=== PATIENT | female | born 1950 | race Caucasian/White ===

== ENCOUNTER → 2016-07-02 | Outpatient (CLI) | payer OTHER ==
[~2016-07-02] MED LIST: ALBU1AER9 INH; ASPCH81; CALCTAB5 PO; CHOL100010 PO; FLNIN NAE; IBUP600T44 PO; OMEG10007 PO; TEARS NATURALE OPR
--- NOTE | 2016-07-02 13:34 | MAMMOGRAPHY REPORT ---
BILATERAL DIGITAL SCREENING MAMMOGRAM WITH CAD: 07/02/2016 TECHNIQUE: Current study was also evaluated with a Computer Aided Detection (CAD) system. Bilatera l CC and MLO views were obtained. COMPARISON: Comparison is made to exams dated: 06/29/2015 mammogram - [facility], 06/29/2014 mammogram - [facility], 06/17/2013 mammogram, 06/16/2012 mammogram - [facility] 04/11/2011 mammogram, and 01/31/2010 mammogram - [facility]. BREAST COMPOSITION: There are scattered areas of fibroglandular density in both breasts. FINDINGS: No suspicious masses, calcifications, or areas of architectural distortion are noted in e ither breast. There has been no significant interval change compared to prior exams. IMPRESSION: ACR BI-RADS CATEGORY 1: NEGATIVE There is no mammographic evidence of malignancy. A 1 year screening mammogram is recommended. The p atient will receive written notification of the results. Approximately 10% of breast cancers are not detected with mammography. A negative mammographic repor t should not delay biopsy if a clinically suggestive mass is present. Teri Cleary M.D. ah/:07/02/2016 11:53:54 Setter Out: Aurea SAMPSON(R)(M), [facility] letter sent: Normal 1/2 BI-RADS Code: ACR BI-RADS Category 1: Negative
== END | disposition home or self-care (01) ==
LOC: C.MAMM 10:10
PROVIDERS: ATTEND Surgery
DX: Z12.31 Encounter for screening mammogram for malignant neoplasm of breast (principal)

== ENCOUNTER → 2017-06-26 | Outpatient (CLI) | payer OTHER ==
--- NOTE | 2017-06-26 11:18 | DIAGNOSTIC IMAGING REPORT ---
ANKLE BRACHIAL INDEX COMPLETE HISTORY: 67-year-old male presents with arterial disease of the bilateral lower extremities bilaterial EDGAR'S TECHNIQUE: Ankle-brachial indices. FINDINGS: BRACHIAL: Right: 136 mmHg. Left: 137 mmHg. ANKLE (POSTERIOR TIBIAL): Right: 149 mmHg. (1.09) Left: 157 mmHg. (1.15) ANKLE (DORSALIS PEDIS): Right: 142 mmHg. (1.04) Left: 150 mmHg. (1.09) IMPRESSION: Normal EDGAR's bilaterally. The above report was generated using voice recognition software. It may contain grammatical, syntax or spelling errors. Electronically signed by: Nick Myles M.D. 06/26/2017 11:16 AM Dictated Date/Time: 06/26/2017 11:14 AM
== END | disposition home or self-care (01) ==
LOC: C.ULTR 10:23
PROVIDERS: ATTEND Podiatrist Foot & Ankle Surgery
DX: I70.293 Other atherosclerosis of native arteries of extremities, bilateral legs (principal)

== ENCOUNTER → 2017-09-10 | Outpatient (CLI) | payer OTHER ==
--- NOTE | 2017-09-11 14:20 | MAMMOGRAPHY REPORT ---
BILATERAL DIGITAL SCREENING MAMMOGRAM TOMOSYNTHESIS WITH CAD: 09/10/2017 CLINICAL HISTORY: Routine screening. Patient has no complaints. TECHNIQUE: Breast tomosynthesis in addition to standard 2D mammography was performed. Current study was also evaluated with a Computer Aided Detection (CAD) system. COMPARISON: Comparison is made to exams dated: 07/02/2016 mammogram, 06/29/2015 mammogram - [facility], 01/02/2015 mammogram, 06/29/2014 mammogram - [facility], 06/17/2013 mammog johnna, and 06/16/2012 mammogram - [facility] BREAST COMPOSITION: There are scattered areas of fibroglandular density in both breasts. FINDINGS: No suspicious masses, calcifications, or areas of architectural distortion are noted in ei ther breast. There has been no significant interval change compared to prior exams. A linear scar ma rker denotes a scar on the left lower inner breast. IMPRESSION: ACR BI-RADS CATEGORY 2: BENIGN There is no mammographic evidence of malignancy. A 1 year screening mammogram is recommended. The pa tient will receive written notification of the results. Approximately 10% of breast cancers are not detected with mammography. A negative mammographic report should not delay biopsy if a clinically suggestive mass is present. Teri Cleary M.D. /:09/10/2017 14:29:54 Release Manager: Aurea Hardy, [facility] letter sent: Normal 1/2 BI-RADS Code: ACR BI-RADS Category 2: Benign
== END | disposition home or self-care (01) ==
LOC: C.MAMM 13:52
PROVIDERS: ATTEND Surgery
DX: Z12.31 Encounter for screening mammogram for malignant neoplasm of breast (principal)

== ENCOUNTER 2020-07-06 03:34 | Inpatient (IN) ==
--- NOTE | 2020-07-06 04:03 | Emergency Department Note ---
Impression & Plan Acute alteration in mental status, Fall ED Provider Note NAME: JAZZY DOHERTY AGE: 70 SEX: F ARRIVES VIA: Ambulance INFORMANT: Patient and EMS ED PROVIDER(S): Melissa Johnson DO CHIEF COMPLAINT: Fall PLAN: Disposition: Admitted to the [facility] service Condition: Fair MEDICAL DECISION MAKING: This is a 70-year-old female patient who was found on the floor of her assisted living facility and was believed to be there for the past 3 to 4 hours. The patient is somewhat confused but states that she fell there and was calling out for help. She describes increased falls over the past couple of weeks. She has a history of Parkinson's disease. She has no specific complaints of pain. The patient continues to have intermittent times of confusion. Patient appears slightly dehydrated. Essentially, the patient was found outside of her apartment in a common area laying on the floor for some period of time. She did not have her walker with her and she is intermittently confused. She has evidence of a contusion to her hand and some abrasions to her elbow but no other significant signs of trauma. She has no significant complaints of pain except for soreness to her thighs. I discussed the case with Dr. Houston and he will evaluate for further management. Triage Nursing notes reviewed and agree them. Additional history obtained from EMS Vital Signs: reviewed and unremarkable Differential diagnosis: Intracranial abnormality, electrolyte abnormality, hypoglycemia, rhabdomyolysis, UTI ER treatment provided: IV normal saline Diagnostics interpreted by me: ECG: Normal sinus rhythm at [address] segment elevation or signs of ischemia. There is no ectopy. There is a normal QTC. There are no previous EKGs to compare to. Cardiac Monitoring: Normal sinus rhythm at a rate of 83 Laboratory studies: See below Imaging studies: As per stat rad CT head: No acute or focal intracranial abnormalities. HPI: 70/F arrives for evaluation of fall. The patient was found on the floor at her assisted living facility by EMS as they were responding to another call in the building. The patient was somewhat confused. It seems that she was laying on the floor there undetected for the past 4 hours. The patient has no complaints of pain but does state that her knees give out and she does drop to the floor frequently and cannot get up. The patient has not been to this hospital before. ROS: See above HPI for pertinent positives & negatives. A total of 10 systems reviewed and were otherwise negative. PAST MEDICAL HISTORY:Parkinson's disease PAST SURGICAL HISTORY:See Below FAMILY HISTORY:See Below SOCIAL HISTORY:Lives in an assisted living-[address] [place] [address] MEDICATIONS:See list ALLERGIES:See list VITALS:See Below PHYSICAL EXAMINATION: HEENT: Head - normocephalic and atraumatic. Pupils are equal, round, and reactive to light. Extraocular eye muscles are intact and sclera are anicteric. Ears - bilaterally patent canals with noninjected tympanic membranes and no evidence of hemotympanum. Nose - moist nasal mucosa without discharge. Mouth - moist buccal mucosa. Oropharynx is nonerythematous and there is no tonsillar exudate or edema noted. Neck: Supple; no pain to palpation over the posterior cervical spine and she has full range of motion in the neck. Heart: Regular rate and rhythm. There is a normal S1 and S2 with no murmurs, clicks, or gallops appreciated. Lungs: Clear to auscultation bilaterally with no wheezes, rales, or rhonchi. Abdomen: Soft, completely nontender, nondistended, with good bowel sounds. There are no palpable pulsatile masses or hepatosplenomegaly. There is no guarding, rigidity, or rebound noted. Extremities: There is a contusion over the dorsal aspect of the left hand and some areas of abrasion over both elbows. Neuro:The patient is awake and alert, oriented place. The patient is intermittently confused at times. Muscle strength is 5/5 in all 4 extremities. 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 There are no cerebellar signs. ED COURSE: Times/Reassessments: 0340: The patient was evaluated in room A10. An order was placed for continuous cardiac monitoring. Patient is in a normal sinus rhythm at a rate of 83. Twelve-lead EKG was obtained. This is described above. The patient went for CT scan of the brain as described above. Patient was bolused with 500 cc of saline. She was catheterized for urine specimen. Patient is resting comfortably at this time. I discussed the case with Dr. Houston and he will evaluate for further management. Melissa Johnson DO Past Med/Surg History Social History Smoking Status: Never smoker Allergies Allergies Allergy/AdvReac Type Severity Reaction Status Date / Time Quinolones Allergy Intermediate SWELLING, Verified 07/06/20 03:53 HIVES Sulfa (Sulfonamide Allergy Intermediate SWELLING, Verified 07/06/20 03:53 Antibiotics) HIVES Cipro Allergy Unknown UNKNOWN Verified 06/22/14 07:31 ciprofloxacin [Cipro] Allergy Unknown UNKNOWN Verified 07/06/20 03:53 Home Meds Home Medications Medication Instructions Recorded Confirmed aspirin 81 mg PO DAILY 07/06/20 07/06/20 calcium carbonate-vitamin D3 1 tab PO TIDM 07/06/20 07/06/20 [Calcium 500 + D (D3)] carbidopa-levodopa 0.5 tab PO TID 07/06/20 07/06/20 cholecalciferol (vitamin D3) 25 mcg PO DAILY 07/06/20 07/06/20 [Vitamin D3] dextran 70-hypromellose [GenTeal 1 drp OPHTHALMIC (EYE) TID 07/06/20 07/06/20 Tears Mild] fluticasone propionate [Flonase] 2 spray INTRANASAL DAILY 07/06/20 07/06/20 ibuprofen 600 mg PO TID PRN 07/06/20 07/06/20 cmhmsdtf-rev-XF-lycopen-lutein 1 tab PO DAILY 07/06/20 07/06/20 [Centrum Silver] polyethylene glycol 3350 [Miralax] 17 g PO DAILY 07/06/20 07/06/20 simethicone [Gas-X Ultra-Strength] 180 mg PO DIRECTED PRN 07/06/20 07/06/20 Results & Data (ED) Vital Signs Vital Signs - 24 hr 07/06/20 03:35 07/06/20 03:57 07/06/20 05:35 Temperature 37 C Temperature Source Oral Pulse Rate - Lying Pulse Rate - Sitting Pulse Rate 83 Pulse Rate [Apical] 84 Respiratory Rate 18 18 Respiratory Effort / Characteristics Non-Labored Non-Labored Respiratory Depth Normal Normal Respiratory Pattern Regular Regular Blood Pressure - Lying Blood Pressure - Sitting Blood Pressure 128/46 L Blood Pressure [Right Arm] 117/44 L Blood Pressure Mean 73 Blood Pressure Mean [Right Arm] 68 Blood Pressure Position Lying Pulse Oximetry 99 97 99 Oxygen Delivery Method Room Air Room Air Room Air Sepsis Recent Fever Within 48 Hours No Sepsis New/Unexplained Change in Mental Status No Sepsis Action Taken by Nursing No Action Required 07/06/20 05:46 Temperature Temperature Source Pulse Rate - Lying 85 Pulse Rate - Sitting 92 H Pulse Rate Pulse Rate [Apical] Respiratory Rate Respiratory Effort / Characteristics Respiratory Depth Respiratory Pattern Blood Pressure - Lying 105/52 L Blood Pressure - Sitting 134/57 L Blood Pressure Blood Pressure [Right Arm] Blood Pressure Mean Blood Pressure Mean [Right Arm] Blood Pressure Position Pulse Oximetry Oxygen Delivery Method Sepsis Recent Fever Within 48 Hours Sepsis New/Unexplained Change in Mental Status Sepsis Action Taken by Nursing Laboratory Data Result diagrams: 07/06/20 04:22 07/06/20 04:22 Lab Results 07/06/20 07/06/20 07/06/20 Range/Units 04:22 04:22 04:55 WBC 8.12 (4.8-10.8) K/uL RBC 4.56 (4.2-5.4) M/uL Hgb 13.9 (12.0-16.0) g/dL Hct 41.1 (37-47) % MCV 90.1 (80-100) fL MCH 30.5 (25-34) pg MCHC 33.8 (32-36) g/dL RDW Std Deviation 42.7 (36.4-46.3) fL RDW Coeff of Vipul 13.1 (11.5-14.5) % Plt Count 193 (130-400) K/uL MPV 9.7 (7.4-10.4) fL Immature Gran % (Auto) 0.2 % Neut % (Auto) 81.8 % Lymph % (Auto) 8.6 % [place] % (Auto) 8.6 % Eos % (Auto) 0.4 % Baso % (Auto) 0.4 % Neut # (Auto) 6.64 H (1.4-6.5) K/uL Lymph # (Auto) 0.70 L (1.2-3.4) K/uL [place] # (Auto) 0.70 H (0.11-0.59) K/uL Eos # (Auto) 0.03 (0-0.5) K/uL Baso # (Auto) 0.03 (0-0.2) K/uL Immature Gran # (Auto) 0.02 (0.00-0.02) K/uL Sodium 140 (136-145) mmol/L Potassium 3.7 (3.5-5.1) mmol/L Chloride 107 (98-107) mmol/L Carbon Dioxide 29 (21-32) mmol/L Anion Gap 4.0 (3-11) BUN 19 H (7-18) mg/dl Creatinine 0.84 (0.6-1.2) mg/dl Est Cr Clr Drug Dosing 46.4 ml/min Est GFR ( Amer) 81.0 Est GFR (Non-Af Amer) 69.9 BUN/Creatinine Ratio 22.4 H (10-20) Glucose 98 (70-99) mg/dl Calcium 9.7 (8.5-10.1) mg/dl Magnesium 2.1 (1.8-2.4) mg/dl Total Bilirubin 0.5 (0.2-1) mg/dl AST 22 (15-37) U/L ALT 29 (12-78) U/L Alkaline Phosphatase 76 (45-117) U/L Total Creatine Kinase 148 (26-192) U/L Troponin I < 0.015 (0-0.045) ng/ml Total Protein 7.0 (6.4-8.2) gm/dl Albumin 3.8 (3.4-5.0) gm/dl Globulin 3.2 (2.5-4.0) gm/dl Albumin/Globulin Ratio 1.2 (0.9-2) TSH 1.180 (0.300-4.500) uIu/ml Urine Color Dark Yellow Urine Appearance Clear (Clear) Urine pH 5.0 (4.5-7.5) Ur Specific [place] 1.021 (1.000-1.030) Urine Protein Negative (Negative) Urine Glucose (UA) Negative (Negative) Urine Ketones 1+ H (Negative) Urine Blood Trace H (Negative) Urine Nitrite Negative (Negative) Urine Bilirubin Negative (Negative) Urine Urobilinogen Negative (Negative) Ur Leukocyte Esterase Negative (Negative) Urine WBC (Auto) 1-5 (0-5) /hpf Urine RBC (Auto) 5-10 H (0-4) /hpf U Hyaline Cast (Auto) 10-30 H (0-5) /lpf U Epithel Cells (Auto) 20-30 H (0-5) /lpf Urine Bacteria (Auto) Negative (Negative) COVID-19 Eval Order 07/06/20 Range/Units 06:30 WBC (4.8-10.8) K/uL RBC (4.2-5.4) M/uL Hgb (12.0-16.0) g/dL Hct (37-47) % MCV (80-100) fL MCH (25-34) pg MCHC (32-36) g/dL RDW Std Deviation (36.4-46.3) fL RDW Coeff of Vipul (11.5-14.5) % Plt Count (130-400) K/uL MPV (7.4-10.4) fL Immature Gran % (Auto) % Neut % (Auto) % Lymph % (Auto) % [place] % (Auto) % Eos % (Auto) % Baso % (Auto) % Neut # (Auto) (1.4-6.5) K/uL Lymph # (Auto) (1.2-3.4) K/uL [place] # (Auto) (0.11-0.59) K/uL Eos # (Auto) (0-0.5) K/uL Baso # (Auto) (0-0.2) K/uL Immature Gran # (Auto) (0.00-0.02) K/uL Sodium (136-145) mmol/L Potassium (3.5-5.1) mmol/L Chloride (98-107) mmol/L Carbon Dioxide (21-32) mmol/L Anion Gap (3-11) BUN (7-18) mg/dl Creatinine (0.6-1.2) mg/dl Est Cr Clr Drug Dosing ml/min Est GFR ( Amer) Est GFR (Non-Af Amer) BUN/Creatinine Ratio (10-20) Glucose (70-99) mg/dl Calcium (8.5-10.1) mg/dl Magnesium (1.8-2.4) mg/dl Total Bilirubin (0.2-1) mg/dl AST (15-37) U/L ALT (12-78) U/L Alkaline Phosphatase (45-117) U/L Total Creatine Kinase (26-192) U/L Troponin I (0-0.045) ng/ml Total Protein (6.4-8.2) gm/dl Albumin (3.4-5.0) gm/dl Globulin (2.5-4.0) gm/dl Albumin/Globulin Ratio (0.9-2) TSH (0.300-4.500) uIu/ml Urine Color Urine Appearance (Clear) Urine pH (4.5-7.5) Ur Specific [place] (1.000-1.030) Urine Protein (Negative) Urine Glucose (UA) (Negative) Urine Ketones (Negative) Urine Blood (Negative) Urine Nitrite (Negative) Urine Bilirubin (Negative) Urine Urobilinogen (Negative) Ur Leukocyte Esterase (Negative) Urine WBC (Auto) (0-5) /hpf Urine RBC (Auto) (0-4) /hpf U Hyaline Cast (Auto) (0-5) /lpf U Epithel Cells (Auto) (0-5) /lpf Urine Bacteria (Auto) (Negative) COVID-19 [facility] Administered Medications Discontinued Medications Sodium Chloride (Nss) 500 mls @ 999 mls/hr IV .Q31M ONE Stop: 07/06/20 06:01 Last Infusion: 07/06/20 06:38 Dose: 0 mls/hr Documented by: [id number] Admin: 07/06/20 06:05 Dose: 999 mls/hr Documented by: [id number] Discharge Plan Visit Data Chief Complaint: Confusion Stated Complaint: ALTERED MENTAL STATUS ED Provider: Melissa Johnson Discharge Problem: Acute alteration in mental status, Fall Forms Stand Alone Forms: My [facility] Prescriptions Prescriptions: No Action simethicone [Gas-X Ultra-Strength] 180 mg Capsule 180 mg PO DIRECTED PRN (Reason: FLATUS/BLOATING) RF: 0 aspirin 81 mg Tablet,Delayed Release (Dr/Ec) 81 mg PO DAILY RF: 0 ibuprofen 600 mg Tablet 600 mg PO TID PRN (Reason: Pain) RF: 0 polyethylene glycol 3350 [Miralax] 17 gram/dose Powder 17 g PO DAILY RF: 0 carbidopa-levodopa 25-100 mg Tablet 0.5 tab PO TID RF: 0 fluticasone propionate [Flonase] 50 mcg/actuation [place],Suspension 2 spray INTRANASAL DAILY RF: 0 cholecalciferol (vitamin D3) [Vitamin D3] 25 mcg (1,000 unit) Capsule 25 mcg PO DAILY RF: 0 Centrum Silver 0.4-300-250 mg-mcg-mcg Tablet 1 tab PO DAILY RF: 0 calcium carbonate-vitamin D3 [Calcium 500 + D (D3)] 500 mg(1,250mg) -125 unit Tablet 1 tab PO TIDM RF: 0 GenTeal Tears Mild 0.1-0.3 % Drops 1 drp OPHTHALMIC (EYE) TID RF: 0 Discharge Problem: Fall Qualifiers: Encounter type: initial encounter Qualified Code(s): W19.XXXA - Unspecified fall, initial encounter
[2020-07-06 04:29] LABS: Basophils # (auto) 0.03 K/uL (0-0.2); Basophils % (auto) 0.4 %; Eosinophils # (auto) 0.03 K/uL (0-0.5); Eosinophils % (auto) 0.4 %; Hematocrit (blood only) 41.1 % (37-47); Hemoglobin 13.9 g/dL (12.0-16.0); Immature Granulocytes # (auto) 0.02 K/uL (0.00-0.02); Immature Granulocytes % (auto) 0.2 %; Lymphocytes % (auto) 8.6 %; Mean Corpuscular Hemoglobin 30.5 pg (25-34); Mean Corpuscular Hgb Conc 33.8 g/dL (32-36); Mean Corpuscular Volume 90.1 fL (80-100); Mean Platelet Volume 9.7 fL (7.4-10.4); Monocytes % (auto) 8.6 %; Neutrophils # (auto) 6.64 K/uL (1.4-6.5); Neutrophils % (auto) 81.8 %; Platelet Count 193 K/uL (130-400); RDW Coefficient of Variation 13.1 % (11.5-14.5); RDW Standard Deviation 42.7 fL (36.4-46.3); Red Blood Count 4.56 M/uL (4.2-5.4); White Blood Count 8.12 K/uL (4.8-10.8)
[2020-07-06 04:47] LABS: Alanine Aminotransferase 29 U/L (12-78); Albumin Level 3.8 gm/dl (3.4-5.0); Aspartate Aminotransferase 22 U/L (15-37); BUN Creatinine Ratio 22.4 (10-20); Blood Urea Nitrogen 19 mg/dl (7-18); Calcium 9.7 mg/dl (8.5-10.1); Carbon Dioxide 29 mmol/L (21-32); Chloride 107 mmol/L (98-107); Creatinine Clr Calc Pharmacy 46.4 ml/min; Est GFR (Non-African American) 69.9; Glucose 98 mg/dl (70-99); Potassium 3.7 mmol/L (3.5-5.1); Sodium 140 mmol/L (136-145)
[2020-07-06 04:58] LABS: Albumin Globulin Ratio 1.2 (0.9-2); Alkaline Phosphatase 76 U/L (45-117); Bilirubin,Total 0.5 mg/dl (0.2-1); Globulin 3.2 gm/dl (2.5-4.0); Troponin I < 0.015 ng/ml (0-0.045)
[2020-07-06 05:24] LABS: Appearance Urine Clear (Clear); Bacteria Urine Automated Negative (Negative); Bilirubin Urine Negative (Negative); Blood Urine Trace (Negative); Color Urine Dark Yellow; Epithelial Cell Urine Auto 20-30 /lpf (0-5); Glucose Urine UA Negative (Negative); Ketones Urine 1+ (Negative); Leukocyte Esterase Urine Negative (Negative); Nitrite Urine Negative (Negative); Protein Urine Negative (Negative); Specific Gravity Urine 1.021 (1.000-1.030); Urobilinogen Urine Negative (Negative)
[2020-07-06] MEDS ORDERED: SODIUM CHLORIDE 0.9% 500 ML IV ONE (05:31)
--- NOTE | 2020-07-06 06:30 | History & Physical Report ---
Date of Service July 06, 2020 Assessment & Plan (1) Acute alteration in mental status: Transient Possible clinical dehydration supported by ketonuria mentation much clearer on my evaluation although slow to respond to some questions from time to time after initial IV hydration at the ER. Recurrent falls, history of Parkinson's disease Rule out orthostasis Cervical pain post fall OBS Medical telemetry IVF Check orthostatic vitals CT cervical spine PT OT eval DVT prophylaxis. SCDs Re: Left hand dorsum ecchymosis Full code Patient requesting for her son to be updated updated of plan of care. Mr. Glenn Bowers, [phone]. Text document was generated using [employer] voice recognition software. It may contain grammatical or spelling errors. Kindly contact undersigned for clarification of any documentation item in question. History of Present Illness Chief Complaint: Fall Primary Care Provider: Stanley Gaines DO History obtained from patient and records. Medical history significant for Parkinson's disease, chronic back pain. Patient has had recurrent falls since the year started. No syncope, dizziness, chest pain, S OB prior to falls. Just the sensation of falling down. Rehab recommended by PCP as per patient but she did not think she needed it. Last night, patient went out of her assisted living unit to the [facility] area to get pretzels when she had another fall without other symptoms. Third fall this year as per patient. No head trauma or LOC. Patient had trouble getting up. Note of some bruising on the left hand without unusual pain. Note of achy neck pain without unusual weakness/numbness of the arms and legs. EMS was at assisted living unit to assess another resident's call when they found patient. Patient noted to be initially confused and somewhat slow to respond as per report. Patient brought by EMS to the hospital. 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 Allergies Allergy/AdvReac Type Severity Reaction Status Date / Time Quinolones Allergy Intermediate SWELLING, Verified 07/06/20 03:53 HIVES Sulfa (Sulfonamide Allergy Intermediate SWELLING, Verified 07/06/20 03:53 Antibiotics) HIVES Cipro Allergy Unknown UNKNOWN Verified 06/22/14 07:31 ciprofloxacin [Cipro] Allergy Unknown UNKNOWN Verified 07/06/20 03:53 Home Medications Medication Instructions Recorded Confirmed Type aspirin 81 mg PO DAILY 07/06/20 07/06/20 History calcium carbonate-vitamin D3 1 tab PO TIDM 07/06/20 07/06/20 History [Calcium 500 + D (D3)] carbidopa-levodopa 0.5 tab PO TID 07/06/20 07/06/20 History cholecalciferol (vitamin D3) 25 mcg PO DAILY 07/06/20 07/06/20 History [Vitamin D3] dextran 70-hypromellose [GenTeal 1 drp OPHTHALMIC (EYE) TID 07/06/20 07/06/20 History Tears Mild] fluticasone propionate [Flonase] 2 spray INTRANASAL DAILY 07/06/20 07/06/20 History ibuprofen 600 mg PO TID PRN 07/06/20 07/06/20 History zblminhd-waj-GY-lycopen-lutein 1 tab PO DAILY 07/06/20 07/06/20 History [Centrum Silver] polyethylene glycol 3350 [Miralax] 17 g PO DAILY 07/06/20 07/06/20 History simethicone [Gas-X Ultra-Strength] 180 mg PO DIRECTED PRN 07/06/20 07/06/20 History Past Med/Surg History Social History Smoking Status: Never smoker Review of Systems Review of Systems: As per HPI, all 10 systems reviewed, all other ROS negative Physical Exam Physical Exam: GENERAL: Comfortable, pleasant, occasionally slow to respond to some questions, oriented, no respiratory distress SKIN: Normal color, warm HEENT: [place] palpebral conjunctivae, no ptosis, dry buccal mucosa NECK : Supple, no tenderness CHEST : CTA, no tenderness HEART : RRR, no obvious murmurs ABDOMEN: Some distention, nontender EXTREMITIES : No LE swelling/tenderness, ecchymosis left hand dorsum, no other conspicuous deformities noted NEUROLOGIC : Coherent, no facial asymmetry, rest tremors of the head and hands noted from time to time, gait and stance not assessed Results & Data Results & Data ([facility]) Vital Signs (Past 12 Hours) Vital Signs Temp Pulse Pulse Resp BP BP Pulse Ox 07/06/20 05:35 84 18 117/44 L 99 07/06/20 03:57 97 07/06/20 03:35 37 C 83 18 128/46 L 99 Laboratory Results Laboratory Results WBC 8.12 K/uL (4.8-10.8) 07/06/20 04:22 RBC 4.56 M/uL (4.2-5.4) 07/06/20 04:22 Hgb 13.9 g/dL (12.0-16.0) 07/06/20 04:22 Hct 41.1 % (37-47) 07/06/20 04:22 MCV 90.1 fL (80-100) 07/06/20 04:22 MCH 30.5 pg (25-34) 07/06/20 04:22 MCHC 33.8 g/dL (32-36) 07/06/20 04:22 RDW Std Deviation 42.7 fL (36.4-46.3) 07/06/20 04:22 RDW Coeff of Vipul 13.1 % (11.5-14.5) 07/06/20 04:22 Plt Count 193 K/uL (130-400) 07/06/20 04:22 MPV 9.7 fL (7.4-10.4) 07/06/20 04:22 Immature Gran % (Auto) 0.2 % 07/06/20 04:22 Neut % (Auto) 81.8 % 07/06/20 04:22 Lymph % (Auto) 8.6 % 07/06/20 04:22 [place] % (Auto) 8.6 % 07/06/20 04:22 Eos % (Auto) 0.4 % 07/06/20 04:22 Baso % (Auto) 0.4 % 07/06/20 04:22 Neut # (Auto) 6.64 K/uL (1.4-6.5) H 07/06/20 04:22 Lymph # (Auto) 0.70 K/uL (1.2-3.4) L 07/06/20 04:22 [place] # (Auto) 0.70 K/uL (0.11-0.59) H 07/06/20 04:22 Eos # (Auto) 0.03 K/uL (0-0.5) 07/06/20 04:22 Baso # (Auto) 0.03 K/uL (0-0.2) 07/06/20 04:22 Immature Gran # (Auto) 0.02 K/uL (0.00-0.02) 07/06/20 04:22 Sodium 140 mmol/L (136-145) 07/06/20 04:22 Potassium 3.7 mmol/L (3.5-5.1) 07/06/20 04:22 Chloride 107 mmol/L (98-107) 07/06/20 04:22 Carbon Dioxide 29 mmol/L (21-32) 07/06/20 04:22 Anion Gap 4.0 (3-11) 07/06/20 04:22 BUN 19 mg/dl (7-18) H 07/06/20 04:22 Creatinine 0.84 mg/dl (0.6-1.2) 07/06/20 04:22 Est Cr Clr Drug Dosing 46.4 ml/min 07/06/20 04:22 Est GFR ( Amer) 81.0 07/06/20 04:22 Est GFR (Non-Af Amer) 69.9 07/06/20 04:22 BUN/Creatinine Ratio 22.4 (10-20) H 07/06/20 04:22 Glucose 98 mg/dl (70-99) 07/06/20 04:22 Calcium 9.7 mg/dl (8.5-10.1) 07/06/20 04:22 Total Bilirubin 0.5 mg/dl (0.2-1) 07/06/20 04:22 AST 22 U/L (15-37) 07/06/20 04:22 ALT 29 U/L (12-78) 07/06/20 04:22 Alkaline Phosphatase 76 U/L (45-117) 07/06/20 04:22 Troponin I < 0.015 ng/ml (0-0.045) 07/06/20 04:22 Total Protein 7.0 gm/dl (6.4-8.2) 07/06/20 04:22 Albumin 3.8 gm/dl (3.4-5.0) 07/06/20 04:22 Globulin 3.2 gm/dl (2.5-4.0) 07/06/20 04:22 Albumin/Globulin Ratio 1.2 (0.9-2) 07/06/20 04:22 TSH 1.180 uIu/ml (0.300-4.500) 07/06/20 04:22 Urine Color Dark Yellow 07/06/20 04:55 Urine Appearance Clear (Clear) 07/06/20 04:55 Urine pH 5.0 (4.5-7.5) 07/06/20 04:55 Ur Specific [place] 1.021 (1.000-1.030) 07/06/20 04:55 Urine Protein Negative (Negative) 07/06/20 04:55 Urine Glucose (UA) Negative (Negative) 07/06/20 04:55 Urine Ketones 1+ (Negative) H 07/06/20 04:55 Urine Blood Trace (Negative) H 07/06/20 04:55 Urine Nitrite Negative (Negative) 07/06/20 04:55 Urine Bilirubin Negative (Negative) 07/06/20 04:55 Urine Urobilinogen Negative (Negative) 07/06/20 04:55 Ur Leukocyte Esterase Negative (Negative) 07/06/20 04:55 Urine WBC (Auto) 1-5 /hpf (0-5) 07/06/20 04:55 Urine RBC (Auto) 5-10 /hpf (0-4) H 07/06/20 04:55 U Hyaline Cast (Auto) 10-30 /lpf (0-5) H 07/06/20 04:55 U Epithel Cells (Auto) 20-30 /lpf (0-5) H 07/06/20 04:55 Urine Bacteria (Auto) Negative (Negative) 07/06/20 04:[address] head initial read: No acute intracranial findings Chest x-ray as per my interpretation atelectasis EKG as per my interpretation : Rate 80, NSR, normal axis, no ischemia
[2020-07-06 06:40] LABS: Creatine Kinase 148 U/L (26-192); Magnesium 2.1 mg/dl (1.8-2.4)
[2020-07-06] MEDS ORDERED: LACTATED RINGER'S 1,000 ML IV STA (06:41)
--- NOTE | 2020-07-06 06:51 | CT Scan Report ---
CT head/brain wo con CLINICAL HISTORY: Head pain status post trauma COMPARISON STUDY: MRI the brain dated 07/28/2006 TECHNIQUE: Axial CT of the brain is performed from the vertex to the skull base. IV contrast was not administered for this examination. A dose lowering technique was utilized adhering to the principles of ALARA. CT DOSE: 614.27 mGy.cm FINDINGS: No intra or extra-axial mass lesions are visualized. There is no CT evidence of acute cortical infarc tion. There is no evidence of midline shift. There is no acute hemorrhage. No calvarial fractures ar e visualized. There are patchy white matter hypodensities likely on a small vessel basis. There is no evidence of pathologic ventricular dilatation. There is no evidence of acute sinusitis IMPRESSION: No acute intracranial findings ACT 112: Negative or not required by law. Electronically signed by: Humberto Thompson M.D. 07/06/2020 6:49 AM
--- NOTE | 2020-07-06 06:53 | XRay Report ---
XR chest 1V portable CLINICAL HISTORY: weakness COMPARISON STUDY: No previous studies for comparison. FINDINGS: The cardiac and mediastinal contours are normal. There is no evidence of focal pulmonary co nsolidation. There is no evidence of failure. No pleural effusions are visualized.[ IMPRESSION: No active disease in the chest. ACT 112: Negative or not required by law. Electronically signed by: Humberto Thompson M.D. 07/06/2020 6:51 AM
[2020-07-06] MEDS ORDERED: KETOROLAC TROMETHAMINE 15 MG/ML VIAL IV STA (07:12)
--- NOTE | 2020-07-06 07:28 | CT Scan Report ---
CT OF THE CERVICAL SPINE CLINICAL HISTORY: Neck pain status post trauma COMPARISON STUDY: No previous studies for comparison. CT DOSE: 227.68 mGy.cm TECHNIQUE: CT scan of the cervical spine was performed from the skull base to the thoracic inlet. Radha ges are reviewed in the axial, sagittal, and coronal planes. IV contrast was not administered for thi s examination. A dose lowering technique was utilized adhering to the principles of ALARA. FINDINGS: There is no apical pneumothorax. There is a nonspecific 5 mm right apical pulmonary nodule The prevertebral soft tissues are normal. No fractures or subluxations are visualized. There are multilevel degenerative changes IMPRESSION: 1. No evidence of acute fracture or traumatic subluxation 2. Moderate multilevel degenerative change 3. 5 mm right apical pulmonary nodule. In a low-risk patient, no further follow-up is indicated. Please refer to below summary of Fleischner criteria recommendations for follow-up of incidental CT n odules (Rafaela Smith, Guidelines for management of small pulmonary nodules detected on CT scans: A sta tement from the Fleischner Society, Radiology 237: [phone].) SOLID NODULES Solitary nodule size: <6 mm * low risk patients: no follow-up needed * high risk patients: optional CT at 12 months Solitary nodule size: 6-8 mm * low risk patients: follow-up at 6-12 months, then consider further follow-up at 18-24 months * high risk patients: initial follow-up CT at 6-12 months and then at 18-24 months if no change Solitary nodule size: >8 mm * either low or high risk patients - consider follow-up CT at 3 months, and/or CT-PET, and/or biopsy Multiple nodules size: <6 mm * low risk patients: no routine follow-up * high risk patients: optional CT at 12 months Multiple nodules size: 6-8 mm * low risk patients: follow-up at 3-6 months, then consider further follow-up at 18-24 months * high risk patients: follow-up at 3-6 months, then at 18-24 months if no change Multiple nodules size: >8 mm * low risk patients: follow-up at 3-6 months, then consider further follow-up at 18-24 months * high risk patients: follow-up at 3-6 months, then at 18-24 months if no change Note: newly detected indeterminate nodule in persons 35 years of age or older. * low risk patients: minimal or absent history of smoking and/or other known risk factors * high risk patients: history of smoking or of other known risk factors (e.g. first degree relative with lung cancer, or exposure to asbestos, radon, uranium) * if a nodule up to 8 mm is partly solid or is ground glass further follow-up is required after 24 m onths to exclude possible slow growing adenocarcinoma (CAT) SUBSOLID NODULES Solitary pure ground-glass nodule * nodule size <6 mm - no CT follow-up required * nodule size >=6 mm - follow-up CT at 6-12 months, then every 2 years until 5 years Solitary part-solid nodule * nodule size <6 mm - no CT follow-up required * nodule size >=6 mm - follow-up CT at 3-6 months. If unchanged, and solid component remains <6 mm, then annual follow-up for 5 years Multiple subsolid nodules * nodule size <6 mm - follow-up CT at 3-6 months, consider further follow-up at 2 and 4 years if sta ble * nodule size >=6 mm - follow-up CT at 3-6 months, subsequent management based on the most suspiciou s nodule(s) ACT 112: Negative or not required by law. Electronically signed by: Humberto Thompson M.D. 07/06/2020 7:27 AM
[2020-07-06] MEDS ORDERED: IBUPROFEN 200 MG TAB PO PRN (08:40)
[2020-07-06] MEDS ORDERED: PROMETHAZINE HCL 6.25 MG in SODIUM CHLORIDE 0.9% 50 ML IV PRN (08:40)
[2020-07-06] MEDS ORDERED: ACETAMINOPHEN 325 MG TAB PO PRN (08:40)
[2020-07-06] MEDS: POLYETHYLENE (MIRALAX) 17 GM PACK PO SCH (10:01)
[2020-07-06] MEDS: FLUTICASONE PROPIONATE NA SPR 16 GM BTL NAE SCH (10:01)
[2020-07-06] MEDS: ASPIRIN 81 MG ECTAB PO SCH (10:01)
[2020-07-06] MEDS: MULTIVITAMIN TAB PO SCH (10:02)
[2020-07-06] MEDS: CARBIDOPA/LEVODOPA 25/100MG TAB PO SCH ×3 (10:02→20:17)
[2020-07-06] MEDS: CHOLECALCIFEROL 1,000 UNITS 25 MCG TAB PO SCH (10:03)
--- NOTE | 2020-07-06 14:06 | Electrocardiogram Report ---
Test Reason : Blood Pressure : / mmHG Vent. Rate : 079 BPM Atrial Rate : 079 BPM P-R Int : 130 ms QRS Dur : 080 ms QT Int : 362 ms P-R-T Axes : 069 054 036 degrees QTc Int : 415 ms Normal sinus rhythm Normal ECG No previous ECGs available Confirmed by Thaddeus Munoz ([id number]) on 07/06/2020 2:06:29 PM Referred By: REFERRED SELF Confirmed By:Krzysztof Munoz
--- NOTE | 2020-07-06 15:16 | Gastrointestinal Consultation ---
Date of Consultation July 06, 2020 Assessment & Plan (1) Dysphagia: Pt is a 70 y/o female admitted after recurrent falls, AMS (resolved). She is c/o intermittent dysphagia, w/o odynophagia, n/v, but has also reports of gradual weight loss in last 1/2 year. Hx of GERD, Schatzki ring s/p EGD w dilation in 2017 - Start Protonix 40mg daily - Soft, slippery diet - Plan for repeat outpt EGD w possible dilation once she is discharged - GI to sign off; pls recall prn Supervising Physician Co-Signing Physician Notes I saw and evaluated the patient. We were consulted with regard to difficulty with swallowing. The patient notes that this is been an ongoing problem for many years and seems to be stable. She did have a prior upper endoscopy performed by one of my partners which seemed to help her several years ago. She is presently admitted due to complications associated with her Parkinson's disease. Physical examination Elderly appearing female in no obvious distress Cogwheel rigidity noted Abdominal tenderness Patient with a history of intermittent solid food dysphagia likely result of her Schatzki's ring as noted on prior upper endoscopy. As she did have benefit from endoscopy with dilation in the past we can certainly make arrangements for this in the near future. This can certainly be done over the next few weeks as an outpatient. I would recommend that the patient be on a mechanical soft diet until the time of her next exam, we would also recommend use of a low-dose proton pump inhibitor. History of Present Illness Reason for Consultation: Dysphagia, hx of Schatzki ring s/p EGD w dilation Requesting Physician: Dr. Pietro Daley Attending Physician: Dr. Ruba Marinelli History of Present Illness Pt is a 70 y/o female admitted s/p fall at home who is seen today for c/o dysphagia. Hx of GERD, hiatal hernia and Schatzki ring s/p EGD w dilation in 2017 which pt reports helped a lot. I do not see any antiacid on her med list. She reports she gets food intermittently stuck on throat at level of sternal notch area. Denies painful swallowing, n/v. She admits multiple falls in last month and gradual weight loss. Allergies Allergy/AdvReac Type Severity Reaction Status Date / Time Quinolones Allergy Intermediate SWELLING, Verified 07/06/20 03:53 HIVES Sulfa (Sulfonamide Allergy Intermediate SWELLING, Verified 07/06/20 03:53 Antibiotics) HIVES Cipro Allergy Unknown UNKNOWN Verified 06/22/14 07:31 ciprofloxacin [Cipro] Allergy Unknown UNKNOWN Verified 07/06/20 03:53 Home Medications Medication Instructions Recorded Confirmed Type aspirin 81 mg PO DAILY 07/06/20 07/06/20 History calcium carbonate-vitamin D3 1 tab PO TIDM 07/06/20 07/06/20 History [Calcium 500 + D (D3)] carbidopa-levodopa 0.5 tab PO TID 07/06/20 07/06/20 History cholecalciferol (vitamin D3) 25 mcg PO DAILY 07/06/20 07/06/20 History [Vitamin D3] dextran 70-hypromellose [GenTeal 1 drp OPHTHALMIC (EYE) TID 07/06/20 07/06/20 History Tears Mild] fluticasone propionate [Flonase] 2 spray INTRANASAL DAILY 07/06/20 07/06/20 History ibuprofen 600 mg PO TID PRN 07/06/20 07/06/20 History btkukvki-uxm-KP-lycopen-lutein 1 tab PO DAILY 07/06/20 07/06/20 History [Centrum Silver] polyethylene glycol 3350 [Miralax] 17 g PO DAILY 07/06/20 07/06/20 History simethicone [Gas-X Ultra-Strength] 180 mg PO DIRECTED PRN 07/06/20 07/06/20 History Patient History Social History Smoking Status: Never smoker Hx Alcohol Use: No Hx Substance Use: No Preferred Language: Korean Communication Ability: Effective Crepe Sole Scourer Required: No Beliefs That Will Affect Care: None Current Living Situation: Alone and Personal Care Facility Other Information That Helps Us Care for You: No Feels Safe at Home: No Is there a partner from a previous relationship who is making you feel unsafe now?: No Any Concerns about Your Family Situation: No Would You Like to Speak to Someone About Your Situation: No Safety Concerns: Afraid for Others in Home Assistive Devices: Walker Review of Systems Review of Systems: All systems reviewed & are unremarkable except as noted in HPI & below Physical Exam Constitutional: + thin, well groomed, cooperative and comfortable Eyes: PERRL, conjunctivae normal, anicteric sclerae ENMT: external ear and nose normal, oropharynx normal Respiratory: normal respiratory effort, lungs clear to auscultation Cardiovascular: RRR, no murmur, no edema Gastrointestinal (Abdomen): normal bowel sounds, soft, nontender, no hepatosplenomegaly Skin: no rashes, warm and dry no jaundice Neurologic: R hand resting tremors Psychiatric: A+Ox3, euthymic affect Lymphatic: no lymphedema Results & Data ([facility]) Vital Signs (Past 12 Hours) Vital Signs Temp Pulse Pulse Resp BP BP BP 07/06/20 15:03 80 07/06/20 11:38 36.9 C 76 16 96/64 L 07/06/20 08:30 36.9 C 90 16 99/67 L 07/06/20 08:10 74 21 07/06/20 08:01 77 17 07/06/20 08:00 78 16 90/71 L 07/06/20 07:50 80 18 07/06/20 07:40 112 H 21 07/06/20 07:30 88 22 109/61 07/06/20 07:21 76 22 07/06/20 07:10 80 16 07/06/20 07:01 80 21 120/48 L 07/06/20 07:00 78 17 07/06/20 06:50 125 H 23 07/06/20 06:40 85 22 07/06/20 06:36 79 27 H 134/57 L 07/06/20 06:31 79 21 105/52 L 07/06/20 06:30 82 22 07/06/20 06:20 82 23 07/06/20 06:10 83 22 07/06/20 06:01 82 17 07/06/20 06:00 79 22 117/44 L 07/06/20 05:50 80 20 07/06/20 05:40 80 20 07/06/20 05:35 84 18 117/44 L 07/06/20 05:30 84 20 116/56 L 07/06/20 05:20 75 17 07/06/20 05:10 82 20 07/06/20 05:01 84 23 07/06/20 05:00 84 23 110/66 07/06/20 04:50 82 24 07/06/20 04:40 72 13 07/06/20 04:35 77 20 116/40 L 07/06/20 04:34 77 20 07/06/20 04:20 81 26 H 07/06/20 04:01 82 22 118/71 07/06/20 03:57 07/06/20 03:35 37 C 83 18 128/46 L Pulse Ox 07/06/20 15:03 07/06/20 11:38 96 07/06/20 08:30 98 07/06/20 08:10 07/06/20 08:01 07/06/20 08:00 07/06/20 07:50 07/06/20 07:40 07/06/20 07:30 07/06/20 07:21 99 07/06/20 07:10 99 07/06/20 07:01 99 07/06/20 07:00 07/06/20 06:50 99 07/06/20 06:40 98 07/06/20 06:36 07/06/20 06:31 97 07/06/20 06:30 07/06/20 06:20 07/06/20 06:10 99 07/06/20 06:01 99 07/06/20 06:00 99 07/06/20 05:50 99 07/06/20 05:40 98 07/06/20 05:35 99 07/06/20 05:30 100 07/06/20 05:20 99 07/06/20 05:10 100 07/06/20 05:01 99 07/06/20 05:00 100 07/06/20 04:50 100 07/06/20 04:40 98 07/06/20 04:35 98 07/06/20 04:34 99 07/06/20 04:20 07/06/20 04:01 98 07/06/20 03:57 97 07/06/20 03:35 100
--- NOTE | 2020-07-06 15:31 | Neurology Consultation ---
Date of Consultation July 06, 2020 Assessment & Plan (1) Parkinson disease: 1. continue Sinemet 25/100 (1/2 tab) TID as home schedule 2. PT/OT for discharge needs 3. orthostatic blood pressures 4. fall precautions 5. needs home nursing assessment if higher level of care is needed 6. follow up with Dr Bose in 4-6 weeks for further evaluation of medications Present on Admission?: Yes (2) Acute alteration in mental status: 1. back to baseline Present on Admission?: Yes (3) Fall: 1. PT/OT for balance issues - may need rehab prior to return home or higher level of care Present on Admission?: Yes Supervising Physician Co-Signing Physician Notes Patient was seen and examined. i agree with Jaqui Baldwin Pa-c as noted below. A 70 year old woman with idiopathic PD on low dose Sinemet admitted with fall. She is delusional this afternoon and discussing concerns regarding dentist. Otherwise examine is consist with PD. She does have bruise on her left hand from the fall. I suspect the patient would benefit from a low dose Seroquel due to the hallucinations and delusions although it sounds like she has declined in the past. Otherwise would leave Sinemet dose the same. Patient will likely n eed inpatient rehab for postural instability associated with her parkinson's disease. Please contact me with any additional questions or concerns. History of Present Illness Reason for Consultation: falls, possible Parkinson Disease progression Requesting Physician: Pietro Daley MD Attending Physician: Pietro Daley MD History of Present Illness Karina is a 70 year old female who has a [facility] parkinson's disease, dysphagia who was brought to [facility] after being found on the floor of her assisted living facility and was believed to be there for the past 3 to 4 hours. She was somewhat confused but states that she fell there and was calling out for help. She describes increased falls over the past couple of weeks. She was slightly dehydrated. She was found outside of her apartment in a common area laying on the floor for some period of time. She did not have her walker with her and she is intermittently confused. She has evidence of a contusion to her hand and some abrasions to her elbow but no other significant signs of trauma. She was no dizzy when she fell she has been falling more often without warning she goes down. She sees Jaqui Bose MD in neurology and has been on Sinemet 1/2 tab three times a day. Higher doses were tried by she was unable to tolerate due to REM behavior issues. denies CP, SOB, abdominal pain, N, V, +falls Allergies Allergy/AdvReac Type Severity Reaction Status Date / Time Quinolones Allergy Intermediate SWELLING, Verified 07/06/20 03:53 HIVES Sulfa (Sulfonamide Allergy Intermediate SWELLING, Verified 07/06/20 03:53 Antibiotics) HIVES Cipro Allergy Unknown UNKNOWN Verified 06/22/14 07:31 ciprofloxacin [Cipro] Allergy Unknown UNKNOWN Verified 07/06/20 03:53 Home Medications Medication Instructions Recorded Confirmed Type aspirin 81 mg PO DAILY 07/06/20 07/06/20 History calcium carbonate-vitamin D3 1 tab PO TIDM 07/06/20 07/06/20 History [Calcium 500 + D (D3)] carbidopa-levodopa 0.5 tab PO TID 07/06/20 07/06/20 History cholecalciferol (vitamin D3) 25 mcg PO DAILY 07/06/20 07/06/20 History [Vitamin D3] dextran 70-hypromellose [GenTeal 1 drp OPHTHALMIC (EYE) TID 07/06/20 07/06/20 History Tears Mild] fluticasone propionate [Flonase] 2 spray INTRANASAL DAILY 07/06/20 07/06/20 History ibuprofen 600 mg PO TID PRN 07/06/20 07/06/20 History dzzjsiji-ziz-PK-lycopen-lutein 1 tab PO DAILY 07/06/20 07/06/20 History [Centrum Silver] polyethylene glycol 3350 [Miralax] 17 g PO DAILY 07/06/20 07/06/20 History simethicone [Gas-X Ultra-Strength] 180 mg PO DIRECTED PRN 07/06/20 07/06/20 History Patient History Social History Smoking Status: Never smoker Hx Alcohol Use: No Hx Substance Use: No Preferred Language: Hungarian Communication Ability: Effective Denial Management Representative Required: No Beliefs That Will Affect Care: None Current Living Situation: Alone and Personal Care Facility Other Information That Helps Us Care for You: No Feels Safe at Home: No Is there a partner from a previous relationship who is making you feel unsafe now?: No Any Concerns about Your Family Situation: No Would You Like to Speak to Someone About Your Situation: No Safety Concerns: Afraid for Others in Home Assistive Devices: Walker Review of Systems Review of Systems: All systems reviewed & are unremarkable except as noted in HPI & below Physical Exam Physical Exam: Physical Exam: Constitutional: appearance nourished, healthy and normal Ears, Nose, Mouth and Throat: mucous membranes moist, no injection and skin normal, mask facies Cardiovascular: normal S-1 and S-2 and regular rate and rhythm Respiratory: clear to auscultation (CTA) and no rales, ronchi or wheeze Musculoskeletal: no peripheral edema and good distal pulses Skin: no stigmata of neurocutaneous disease noted and normal and intact Eyes: extraocular muscles intact (EOMI) and pupils equal, round and reactive to light (PERRL), decreased blink NEUROLOGIC EXAMINATION: Mental status: Alert and interactive Oriented [facility], [place], lives at [facility] Oriented to person Speech fluent with no evidence of aphasia Cranial Nerves smile eye brow raise symmetric Reflexes: Deep tendon reflexes were symmetrical and graded 2/5. Sensory: light cool touch Coordination: finger to nose intact, no reaching tremor, resting tremor R>L Gait/Stance: Posture normal. Motor: Negative for pronator drift of out stretched arms with eyes closed. Strength: hand immigration attorney biceps triceps 5/5 bilaterally hip flex plantar flex ext 5/5 Results & Data ([facility]) Vital Signs (Past 12 Hours) Vital Signs Temp Pulse Pulse Resp BP BP BP 07/06/20 15:16 80 07/06/20 15:03 80 07/06/20 11:38 36.9 C 76 16 96/64 L 07/06/20 08:30 36.9 C 90 16 99/67 L 07/06/20 08:10 74 21 07/06/20 08:01 77 17 07/06/20 08:00 78 16 90/71 L 07/06/20 07:50 80 18 07/06/20 07:40 112 H 21 07/06/20 07:30 88 22 109/61 07/06/20 07:21 76 22 07/06/20 07:10 80 16 07/06/20 07:01 80 21 120/48 L 07/06/20 07:00 78 17 02/26/21 06:50 125 H 23 07/06/20 06:40 85 22 07/06/20 06:36 79 27 H 134/57 L 07/06/20 06:31 79 21 105/52 L 07/06/20 06:30 82 22 07/06/20 06:20 82 23 07/06/20 06:10 83 22 07/06/20 06:01 82 17 07/06/20 06:00 79 22 117/44 L 07/06/20 05:50 80 20 07/06/20 05:40 80 20 07/06/20 05:35 84 18 117/44 L 07/06/20 05:30 84 20 116/56 L 07/06/20 05:20 75 17 07/06/20 05:10 82 20 07/06/20 05:01 84 23 07/06/20 05:00 84 23 110/66 07/06/20 04:50 82 24 07/06/20 04:40 72 13 07/06/20 04:35 77 20 116/40 L 07/06/20 04:34 77 20 07/06/20 04:20 81 26 H 07/06/20 04:01 82 22 118/71 07/06/20 03:57 07/06/20 03:35 37 C 83 18 128/46 L Pulse Ox 07/06/20 15:16 07/06/20 15:03 07/06/20 11:38 96 07/06/20 08:30 98 07/06/20 08:10 07/06/20 08:01 07/06/20 08:00 07/06/20 07:50 07/06/20 07:40 07/06/20 07:30 07/06/20 07:21 99 07/06/20 07:10 99 07/06/20 07:01 99 07/06/20 07:00 07/06/20 06:50 99 07/06/20 06:40 98 07/06/20 06:36 07/06/20 06:31 97 07/06/20 06:30 07/06/20 06:20 07/06/20 06:10 99 07/06/20 06:01 99 07/06/20 06:00 99 07/06/20 05:50 99 07/06/20 05:40 98 07/06/20 05:35 99 07/06/20 05:30 100 07/06/20 05:20 99 07/06/20 05:10 100 07/06/20 05:01 99 07/06/20 05:00 100 07/06/20 04:50 100 07/06/20 04:40 98 07/06/20 04:35 98 07/06/20 04:34 99 07/06/20 04:20 07/06/20 04:01 98 07/06/20 03:57 97 07/06/20 03:35 100 Laboratory Results Abnormal lab results 07/06/20 07/06/20 07/06/20 Range/Units 04:22 04:22 04:55 Neut # (Auto) 6.64 H (1.4-6.5) K/uL Lymph # (Auto) 0.70 L (1.2-3.4) K/uL [place] # (Auto) 0.70 H (0.11-0.59) K/uL BUN 19 H (7-18) mg/dl BUN/Creatinine Ratio 22.4 H (10-20) Ammonia (11-32) umol/L Urine Ketones 1+ H (Negative) Urine Blood Trace H (Negative) Urine RBC (Auto) 5-10 H (0-4) /hpf U Hyaline Cast (Auto) 10-30 H (0-5) /lpf U Epithel Cells (Auto) 20-30 H (0-5) /lpf 07/06/20 Range/Units 07:04 Neut # (Auto) (1.4-6.5) K/uL Lymph # (Auto) (1.2-3.4) K/uL [place] # (Auto) (0.11-0.59) K/uL BUN (7-18) mg/dl BUN/Creatinine Ratio (10-20) Ammonia < 10.0 L (11-32) umol/L Urine Ketones (Negative) Urine Blood (Negative) Urine RBC (Auto) (0-4) /hpf U Hyaline Cast (Auto) (0-5) /lpf U Epithel Cells (Auto) (0-5) /lpf Diagnostic Findings CT head- no acute abnormalities CT c spine- No evidence of acute fracture or traumatic subluxation Moderate multilevel degenerative change 5 mm right apical pulmonary nodule. In a low-risk patient, no further follow-up is indicated. (1) Fall Encounter type: initial encounter Qualified Code(s): W19.XXXA - Unspecified fall, initial encounter
[2020-07-06] MEDS: PANTOprazole 40 MG TAB PO SCH (16:52)
--- NOTE | 2020-07-06 17:00 | Communication Note ---
Date of Service: July 06, 2020 seen and examined at bedside not in distress, somewhat weak oriented x 3 reports falling 3x in 1 month happens while walking, no problem thinks legs are not working right reports right sided ear pain, no hearing loss, ringing reports dysphagia ENT (+) pain on palpation of right pinna, full, erythematous R TM left ear essentially normal clear BS BL Normal rate, reg rhythm abdomen soft,non tender (+) resting hand tremors labs reviewed Falls r/o Orthostasis r/o worsening Parkinson -- Ortho VS gentle IV fluids -- Neuro consulted Dysphagia -- hx of Schatzi's ring dilation -- GI consulted Speech consulted R Otitis Externa/media -- Ofloxacin drops Augmetin BID other Dx and plan of care per Dr. Garcia's notes Pietro Daley MD
[2020-07-06] MEDS: AMOXICILLIN/CLAVULANATE 875 MG TAB PO SCH (17:43)
[2020-07-07 05:55] LABS: Basophils # (auto) 0.01 K/uL (0-0.2); Basophils % (auto) 0.2 %; Eosinophils # (auto) 0.33 K/uL (0-0.5); Eosinophils % (auto) 6.5 %; Hematocrit (blood only) 37.5 % (37-47); Hemoglobin 12.7 g/dL (12.0-16.0); Immature Granulocytes # (auto) 0.01 K/uL (0.00-0.02); Immature Granulocytes % (auto) 0.2 %; Lymphocytes % (auto) 15.7 %; Mean Corpuscular Hemoglobin 30.6 pg (25-34); Mean Corpuscular Hgb Conc 33.9 g/dL (32-36); Mean Corpuscular Volume 90.4 fL (80-100); Mean Platelet Volume 9.8 fL (7.4-10.4); Monocytes # (auto) 0.46 K/uL (0.11-0.59); Neutrophils % (auto) 68.4 %; Platelet Count 164 K/uL (130-400); RDW Coefficient of Variation 13.2 % (11.5-14.5); RDW Standard Deviation 43.5 fL (36.4-46.3); Red Blood Count 4.15 M/uL (4.2-5.4); White Blood Count 5.11 K/uL (4.8-10.8)
[2020-07-07 06:33] LABS: BUN Creatinine Ratio 18.7 (10-20); Calcium 9.1 mg/dl (8.5-10.1); Creatinine Clr Calc Pharmacy 57.3 ml/min; Potassium 3.8 mmol/L (3.5-5.1)
[2020-07-07] MEDS: CARBIDOPA/LEVODOPA 25/100MG TAB PO SCH ×3 (08:31→20:17)
[2020-07-07] MEDS: ASPIRIN 81 MG ECTAB PO SCH (08:31)
[2020-07-07] MEDS: AMOXICILLIN/CLAVULANATE 875 MG TAB PO SCH ×2 (08:32→17:31)
[2020-07-07] MEDS: FLUTICASONE PROPIONATE NA SPR 16 GM BTL NAE SCH (08:32)
[2020-07-07] MEDS: CHOLECALCIFEROL 1,000 UNITS 25 MCG TAB PO SCH (08:32)
[2020-07-07] MEDS: PANTOprazole 40 MG TAB PO SCH (08:32)
[2020-07-07] MEDS: MULTIVITAMIN TAB PO SCH (08:32)
[2020-07-07] MEDS: POLYETHYLENE (MIRALAX) 17 GM PACK PO SCH (08:33)
--- NOTE | 2020-07-07 09:57 | Psychiatric Consultation ---
Date of Consultation July 07, 2020 Impression / Recommendations (1) Acute alteration in mental status: Patient symptoms are consistent with delirium, as she had an acute change in mental status, with attentional disturbance, disturbance in cognition (memory deficit, perception), and the vague paranoia noted during the stay is likely due to the delirium. Recommend standard delirium interventions, including maintenance of day night cycles, avoidance of deliriogenic medications, frequent reorientation, and treatment of underlying medical conditions. Would avoid using atypical antipsychotics given the associated risks, unless she is experiencing psychotic symptoms as a result of delirium that are distressing to her her place her or staff at imminent risk of harm. Risk Factors Assessment Male: No : Yes Do You Have Access To A Gun?: No Health Problems: Yes Mental Health Diagnoses: No Substance Use Disorders: No Previous Attempt: No Previous Psychiatric Hospitalization: No Hopelessness: No Smoker: No Protective Factors Assessment : No Responsible for Young Children: No Employed: No Stable Relationships: Yes Supportive Family: Yes Good Rapport with Provider: Yes Absence of Any Risk Factors Above: Yes (No mood symptoms, no suicidal thoughts) Psych History Identifying Data 70-year-old female with Parkinson's disease admitted after a fall. Psychiatry consulted for hallucinations and delusions. Chief Complaint "I'm not sure what that would be about". History of Present Illness Per EMR, patient presented to the ER yesterday after she was found on the floor of her assisted living facility somewhat confused. She received IV fluids as she appeared dehydrated, and GI and Neurology consults performed. GI was consulted for dysphagia, started Protonix, and recommended repeat outpatient EGD with possible dilation. Neurology recommended consideration of low-dose quetiapine and continuation of home dose of Sinemet. They also recommended inpatient rehab, and PT and OT consults have been ordered. Documentation indicates she has been intermittently confused, and one note indicates she was "delusional," talking about a dentist. No indication of hallucinations in the EMR. Case management contacted her son who clarified she lives at a senior apartment at [facility] alone, has no in-home services, and has been having falls at home. She is independent with ADLs and uses a cane and walker, in the [facility] van for transportation. On my assessment, the patient is perplexed as to why psychiatry was consulted, but consents to the interview and participates willingly. She states that she is in the hospital after a fall, related to her Parkinson's disease. States she is struggled with falls in the past, but had not had them in about a year. She denies any recent hallucinations, although indicates that she has experienced them in the past when on higher doses of Sinemet, but when her dose was decreased, they resolved. She denies symptoms of depression, anxiety, problems with sleep, changes in appetite or weight. She reports concerns about some of the other residents in her apartment building, stating that her 2 men who previously lived there and were forced to leave due to their behavior, but recently returned, and that she and some of her neighbors are concerned about them. She says she overheard one of them saying something about "raping and killing" while he was standing outside her apartment door, and she told the manager of engineering, but did not think they believed her. She denies that she is fearful of these men, and states that she deals with them by ignoring them. She reports good support from her family and friends, and states she is close with some of her neighbors. She struggles at times to provide specific information about her family, for example when asked about her siblings, said she had 8, "then in the 20s, they are still in college." Past Psychiatric History Previous Psych History: Denies Outpatient Services: Denies mental health providers Previous Psych Admissions: Denies Do You Have Access To A Gun?: No History of Previous Suicide Attempt: No Past Medication Trials: Denies Allergies Allergy/AdvReac Type Severity Reaction Status Date / Time Quinolones Allergy Intermediate SWELLING, Verified 07/06/20 03:53 HIVES Sulfa (Sulfonamide Allergy Intermediate SWELLING, Verified 07/06/20 03:53 Antibiotics) HIVES Cipro Allergy Unknown UNKNOWN Verified 06/22/14 07:31 ciprofloxacin [Cipro] Allergy Unknown UNKNOWN Verified 07/06/20 03:53 Home Medications Medication Instructions Recorded Confirmed Type aspirin 81 mg PO DAILY 07/06/20 07/06/20 History calcium carbonate-vitamin D3 1 tab PO TIDM 07/06/20 07/06/20 History [Calcium 500 + D (D3)] carbidopa-levodopa 0.5 tab PO TID 07/06/20 07/06/20 History cholecalciferol (vitamin D3) 25 mcg PO DAILY 07/06/20 07/06/20 History [Vitamin D3] dextran 70-hypromellose [GenTeal 1 drp OPHTHALMIC (EYE) TID 07/06/20 07/06/20 History Tears Mild] fluticasone propionate [Flonase] 2 spray INTRANASAL DAILY 07/06/20 07/06/20 History ibuprofen 600 mg PO TID PRN 07/06/20 07/06/20 History vbxfxbft-unu-QL-lycopen-lutein 1 tab PO DAILY 07/06/20 07/06/20 History [Centrum Silver] polyethylene glycol 3350 [Miralax] 17 g PO DAILY 07/06/20 07/06/20 History simethicone [Gas-X Ultra-Strength] 180 mg PO DIRECTED PRN 07/06/20 07/06/20 History Substance Abuse History Denies Personal History Living Arrangements: Apartment Employment Status: Retired Marital Status: Number Of Children: 1 son, 2 grandchildren Beliefs That Will Affect Care: None Patient History Social History Smoking Status: Never smoker Hx Alcohol Use: No Hx Substance Use: No Preferred Language: Bangladeshi Communication Ability: Effective Area Operations Manager Required: No Beliefs That Will Affect Care: None Current Living Situation: Alone and Personal Care Facility Other Information That Helps Us Care for You: No Feels Safe at Home: No Is there a partner from a previous relationship who is making you feel unsafe now?: No Any Concerns about Your Family Situation: No Would You Like to Speak to Someone About Your Situation: No Safety Concerns: Afraid for Others in Home Assistive Devices: Walker Physical Exam Psychiatric: Orientation: alert Oriented x 6/10 (did not know the hospital, floor, season, or date) Elderly female appearing her stated age, dressed in a hospital gown, short white hair. Seated in the bedside chair no acute distress. Eye Contact: good eye contact Motor Behavior: + tremor Soft-spoken, rambling quality Full, appropriate "Fine." Thought Process: + circumstantial thought process Rambling quality, requires redirection at times, but answers most questions appropriately. Thought Content: reality based without delusions Reports some concerns about neighbors in her apartment building, unclear if these are reality based Suicidal Thoughts: denies suicidal thoughts Homicidal Thoughts: denies homicidal thoughts Hallucinations: no auditory hallucinations and no visual hallucinations Cognition: + recent memory not intact, + remote memory not intact and + attention not intact Insight: + fair insight Judgement: + fair judgement Vital Signs (Past 24 Hours): Last Vital Signs Temp 36.6 C 07/07/20 07:12 Pulse 84 07/07/20 07:12 Resp 18 07/07/20 07:12 BP 112/57 L 07/07/20 07:12 Pulse Ox 98 07/07/20 07:12 Review of Systems All systems reviewed & are unremarkable except as noted in HPI & below Weakness, tremor Results & Data (PSY) Medications Administered Acetaminophen (Acetaminophen 325 Mg Tab) 650 mg PO Q4H PRN PRN Reason: Pain or Fever Stop: 08/05/20 08:39 Last Admin: 07/06/20 15:27 Dose: 650 mg Documented by: [id number] Amoxicillin/Clavulanate Potassium (Amoxicillin/Clavulanate 875 Mg Tab) 1 tab PO BIDM [facility] Stop: 07/16/20 16:59 Last Admin: 07/07/20 08:32 Dose: 1 tab Documented by: [id number] Admin: 07/06/20 17:43 Dose: 1 tab Documented by: [id number] Aspirin (Aspirin 81 Mg Ectab) 81 mg PO DAILY [facility] Stop: 08/05/20 08:59 Last Admin: 07/07/20 08:31 Dose: 81 mg Documented by: [id number] Admin: 07/06/20 10:01 Dose: 81 mg Documented by: [id number] Carbidopa/Levodopa (Carbidopa/Levodopa 25/100mg Tab) 0.5 tab PO TID [facility] Stop: 08/05/20 08:59 Last Admin: 07/07/20 08:31 Dose: 0.5 tab Documented by: [id number] Admin: 07/06/20 20:17 Dose: 0.5 tab Documented by: [id number] Admin: 07/06/20 14:22 Dose: 0.5 tab Documented by: [id number] Admin: 07/06/20 10:02 Dose: 0.5 tab Documented by: [id number] Fluticasone Propionate (Fluticasone Propionate Na Spr 16 Gm Btl) 2 sprays VERNON DAILY [facility] Stop: 08/05/20 08:59 Last Admin: 07/07/20 08:32 Dose: 2 sprays Documented by: [id number] Admin: 07/06/20 10:01 Dose: Not Given Documented by: [id number] Miscellaneous (Genteal Tears Mild- Order Awaiting Action) 1 ea N/A QS [facility] Stop: 08/05/20 15:59 Last Admin: 07/07/20 08:30 Dose: Not Given Documented by: [id number] Admin: 07/07/20 07:46 Dose: Not Given Documented by: [id number] Admin: 07/06/20 16:53 Dose: Not Given Documented by: [id number] Multivitamins (Multivitamin Tab) 1 tab PO QAM [facility]ITA Stop: 08/05/20 08:59 Last Admin: 07/07/20 08:32 Dose: 1 tab Documented by: [id number] Admin: 07/06/20 10:02 Dose: 1 tab Documented by: [id number] Pantoprazole Sodium (Pantoprazole 40 Mg Tab) 40 mg PO QAM [facility]ITA Stop: 08/05/20 15:29 Last Admin: 07/07/20 08:32 Dose: 40 mg Documented by: [id number] Admin: 07/06/20 16:52 Dose: 40 mg Documented by: [id number] Polyethylene Glycol (Polyethylene (Miralax) 17 Gm Pack) 17 gm PO DAILY [facility] Stop: 08/05/20 08:59 Last Admin: 07/07/20 08:33 Dose: 17 gm Documented by: [id number] Admin: 07/06/20 10:01 Dose: 17 gm Documented by: [id number] Vitamin D (Cholecalciferol 1,000 Units 25 Mcg Tab) 1,000 units PO DAILY [facility] Stop: 08/05/20 08:59 Last Admin: 07/07/20 08:32 Dose: 1,000 units Documented by: [id number] Admin: 07/06/20 10:03 Dose: 1,000 units Documented by: [id number] Coding Level of Care Code 59363 [facility] Intl Hosp Care Lvl 3 Diagnoses Acute alteration in mental status R41.82
--- NOTE | 2020-07-07 17:04 | Hospitalist Progress Note ---
Date of Service July 07, 2020 Assessment & Plan (1) Acute alteration in mental status: Transient Possible clinical dehydration supported by ketonuria -- improved Psych consulted- noted to have delirium this morning mental status mostly good on my exam -- Psych does not recommend initiation of antipsychotic medication at this time Recurrent falls, history of Parkinson's disease -- Ortho VS negative Telemetry: no arrhythmia -- PT OT eval in progress Cervical pain post fall -- no fractures on CT Otitis Externa/media -- improving continue Augmetin PO and Ofloxacin Otic drops DVT prophylaxis. SCDs Re: Left hand dorsum ecchymosis Full code Admission and Anticipated Discharge Date Admission Date: July 06, 2020 Subjective ff up for falls, etc seen resting in bed, comfortable not in distress oriented x 3, answers questions appropriately occasionally get confused denies hallucinations states she feels improved today compared to yesterday ambulated in the hallways - no problems per patient denies dizziness, presyncope, leg weakness right ear pain improving no other problems Review of Systems Review of Systems: All systems reviewed & are unremarkable except as noted in Subjective Physical Exam Physical Exam: General- oriented x 3, not in distress, speaks in sentences with no effort or accessory muscle use Eyes- anicteric Neck- no JVD Lungs- clear breath sounds bilaterally Heart- normal rate, regular rhythm; no murmurs Abdomen- normal bowel sounds, nondistended, soft, nontender Extremities- no pretibial edema, no calf tenderness Neuro- alert, oriented x 3; no gross focal neurologic deficits Skin- warm & dry Results & Data Results & Data ([facility]) Vital Signs (Past 12 Hours) Vital Signs Temp Pulse Pulse Resp BP BP Pulse Ox 07/07/20 15:16 36.5 C 72 17 106/58 L 98 07/07/20 12:35 36.7 C 74 18 95/58 L 95 07/07/20 10:51 75 07/07/20 07:12 36.6 C 84 18 112/57 L 98 all noted and reviewed including below
[2020-07-08] MEDS: CARBIDOPA/LEVODOPA 25/100MG TAB PO SCH ×3 (08:59→22:01)
[2020-07-08] MEDS: CHOLECALCIFEROL 1,000 UNITS 25 MCG TAB PO SCH (08:59)
[2020-07-08] MEDS: MULTIVITAMIN TAB PO SCH (09:00)
[2020-07-08] MEDS: PANTOprazole 40 MG TAB PO SCH (09:01)
[2020-07-08] MEDS: AMOXICILLIN/CLAVULANATE 875 MG TAB PO SCH ×2 (09:01→17:56)
[2020-07-08] MEDS: ASPIRIN 81 MG ECTAB PO SCH (09:01)
[2020-07-08] MEDS: FLUTICASONE PROPIONATE NA SPR 16 GM BTL NAE SCH (09:02)
[2020-07-08] MEDS: POLYETHYLENE (MIRALAX) 17 GM PACK PO SCH (09:04)
--- NOTE | 2020-07-08 19:36 | Hospitalist Progress Note ---
Date of Service July 08, 2020 Assessment & Plan (1) Acute alteration in mental status: Transient Possible clinical dehydration supported by ketonuria -- (+) delirium today Psych consulted- noted to have delirium -- Psych does not recommend initiation of antipsychotic medication at this time -- continue strategies to prevent Delirium Recurrent falls, history of Parkinson's disease -- Ortho VS: negative Telemetry: no arrhythmia -- PT OT eval in progress Cervical pain post fall -- no fractures on CT Otitis Externa/media -- improving continue Augmetin PO and Ofloxacin Otic drops DVT prophylaxis. SCDs Re: Left hand dorsum ecchymosis Full code Admission and Anticipated Discharge Date Admission Date: July 07, 2020 Subjective ff up for falls, etc seen resting in bed, comfortable states she feels improved today oriented x 3, answers most questions appropriately but does get tangential- states RN is stealing her belongings there is a group outside who is trying to abduct people etc states she ambulated with no problems to the bathroom no chest pain, dyspnea, palpitations no other symptoms Review of Systems Review of Systems: All systems reviewed & are unremarkable except as noted in Subjective Physical Exam Physical Exam: General- oriented x 3, not in distress, speaks in sentences with no effort or accessory muscle use gets confused intermittently Eyes- anicteric Neck- no JVD Lungs- clear breath sounds bilaterally Heart- normal rate, regular rhythm; no murmurs Abdomen- normal bowel sounds, nondistended, soft, nontender Extremities- no pretibial edema, no calf tenderness (+) resting tremor of the hands Neuro- alert, oriented x 3; no new gross focal neurologic deficits Skin- warm & dry Results & Data Results & Data ([facility]) Vital Signs (Past 12 Hours) Vital Signs Temp Pulse Pulse Resp BP Pulse Ox 07/08/20 19:29 36.6 C 85 20 124/53 L 95 07/08/20 17:13 102 H 07/08/20 15:41 36.7 C 90 18 145/78 H 94 07/08/20 11:22 36.8 C 79 18 125/86 97 all noted and reviewed including below
[2020-07-09] MEDS: ASPIRIN 81 MG ECTAB PO SCH (07:46)
[2020-07-09] MEDS: CARBIDOPA/LEVODOPA 25/100MG TAB PO SCH ×2 (07:47→13:43)
[2020-07-09] MEDS: CHOLECALCIFEROL 1,000 UNITS 25 MCG TAB PO SCH (07:47)
[2020-07-09] MEDS: PANTOprazole 40 MG TAB PO SCH (07:47)
[2020-07-09] MEDS: MULTIVITAMIN TAB PO SCH (07:47)
[2020-07-09] MEDS: AMOXICILLIN/CLAVULANATE 875 MG TAB PO SCH ×2 (07:49→16:15)
[2020-07-09] MEDS: POLYETHYLENE (MIRALAX) 17 GM PACK PO SCH (07:49)
[2020-07-09] MEDS: FLUTICASONE PROPIONATE NA SPR 16 GM BTL NAE SCH (07:49)
--- NOTE | 2020-07-09 15:03 | Hospitalist Progress Note ---
Date of Service July 09, 2020 Assessment & Plan (1) Acute alteration in mental status: Transient Possible Clinical Dehydration -- given IV fluids -- (+) delirium noted while admitted, including paranoid thoughts- certain group of individuals coming to abduct people, RN stealing her belongings etc Psych consulted- felt to be component of delirium -- Psych does not recommend initiation of antipsychotic medication at this time -- delirium seemed to have resolved on the day of discharge -- continue to monitor closely if with persistence of tangential, paranoid thoughts, re-consult Psych service Recurrent falls, history of Parkinson's disease -- possible component of deconditioning -- Ortho VS: negative Telemetry: no arrhythmia -- evaluated by Neurology service does not recommend any changes in Sinemet dosing -- patient admits to RN about being inconsistent with Sinemet intake -- PT OT eval : recommend transition to Inpatient Rehab Cervical pain post fall -- no fractures on CT Otitis Externa/media -- improving continue Augmetin PO x 4 more days History of Schatzi's Ring -- s/p dilation in 2019 -- patient reports intermittent dysphagia GI consulted- recommend outpatient ff up in 1-2 weeks -- Protonix daily started continue soft, slippery diet, aspiration precautions please Disposition d/c to Rehab ff up with PCP 1 week after d/c from Rehab ff up with [facility] in 1-2 weeks ff up with [facility] as scheduled Admission and Anticipated Discharge Date Admission Date: July 07, 2020 Subjective FF UP FOR FALLS, ETC seen resting in bed, comfortable sitting up in good spirits also saw ambulating in the hallways with a walker- no problems patient states she feels fine overall today no headache, dizziness, chest pain, palpitations, abdominal pain, nausea/vomiting ear pain continues to resolve, no other ear symptoms oriented x 3, answers all questions appropriately, no paranoid thoughts elicited, no hallucinations states she ambulated in the halls with no problems states she is ready for discharge today Review of Systems Review of Systems: All systems reviewed & are unremarkable except as noted in Subjective Physical Exam Physical Exam: General- oriented x 3, not in distress, speaks in sentences with no effort or accessory muscle use Eyes- anicteric Neck- no JVD Lungs- clear breath sounds bilaterally no crackles Heart- normal rate, regular rhythm; no murmurs Abdomen- normal bowel sounds, nondistended, soft, nontender Extremities- no pretibial edema, no calf tenderness Neuro- alert, oriented x 3; no gross focal neurologic deficits Skin- warm & dry Psych- appropriate affect, smiling, no tangential thoughts today Results & Data Results & Data ([facility]) Vital Signs (Past 12 Hours) Vital Signs Temp Pulse Pulse Resp BP Pulse Ox 07/09/20 14:43 36.3 C L 79 16 127/66 97 07/09/20 11:05 36.6 C 87 18 114/71 95 07/09/20 07:16 36.7 C 70 18 119/72 95 07/09/20 07:09 84 07/09/20 02:57 36.2 C L 78 20 126/69 98 all noted and reviewed including below
--- NOTE | 2020-07-09 15:16 | Discharge Summary ---
Date of Service July 09, 2020 Admission HPI Per Admitting Provider History obtained from patient and records. Medical history significant for Parkinson's disease, chronic back pain. Patient has had recurrent falls since the year started. No syncope, dizziness, chest pain, S OB prior to falls. Just the sensation of falling down. Rehab recommended by PCP as per patient but she did not think she needed it. Last night, patient went out of her assisted living unit to the [facility] area to get pretzels when she had another fall without other symptoms. Third fall this year as per patient. No head trauma or LOC. Patient had trouble getting up. Note of some bruising on the left hand without unusual pain. Note of achy neck pain without unusual weakness/numbness of the arms and legs. EMS was at assisted living unit to assess another resident's call when they found patient. Patient noted to be initially confused and somewhat slow to respond as per report. Patient brought by EMS to the hospital. 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 Admission Exam Per Admitting Provider GENERAL: Comfortable, pleasant, occasionally slow to respond to some questions, oriented, no respiratory distress SKIN: Normal color, warm HEENT: [place] palpebral conjunctivae, no ptosis, dry buccal mucosa NECK : Supple, no tenderness CHEST : CTA, no tenderness HEART : RRR, no obvious murmurs ABDOMEN: Some distention, nontender EXTREMITIES : No LE swelling/tenderness, ecchymosis left hand dorsum, no other conspicuous deformities noted NEUROLOGIC : Coherent, no facial asymmetry, rest tremors of the head and hands noted from time to time, gait and stance not assessed Principal Diagnosis RECURRENT FALLS EPISODE OF ALTERED MENTAL STATUS PARKINSON DISEASE Discharge Exam General- oriented x 3, not in distress, speaks in sentences with no effort or accessory muscle use Eyes- anicteric Neck- no JVD Lungs- clear breath sounds bilaterally no crackles Heart- normal rate, regular rhythm; no murmurs Abdomen- normal bowel sounds, nondistended, soft, nontender Extremities- no pretibial edema, no calf tenderness Neuro- alert, oriented x 3; no gross focal neurologic deficits Skin- warm & dry Psych- appropriate affect, smiling, no tangential thoughts today Discharge Data Allergies Allergy/AdvReac Type Severity Reaction Status Date / Time Quinolones Allergy Intermediate SWELLING, Verified 07/06/20 03:53 HIVES Sulfa (Sulfonamide Allergy Intermediate SWELLING, Verified 07/06/20 03:53 Antibiotics) HIVES Cipro Allergy Unknown UNKNOWN Verified 06/22/14 07:31 ciprofloxacin [Cipro] Allergy Unknown UNKNOWN Verified 07/06/20 03:53 Consultations 07/06/20 05:31 ED Decision to Admit Stat 07/06/20 08:40 Consult Case Management - Discharge Planning Routine 07/06/20 11:20 Consult Neurology Routine 07/06/20 14:46 Consult Gastroenterology Routine 07/07/20 08:46 Consult Psychiatry Routine Ordered Studies 07/06/20 03:57 CT head/brain wo con Urgent FINDINGS: No intra or extra-axial mass lesions are visualized. There is no CT evidence of acute cortical infarction. There is no evidence of midline shift. There is no acute hemorrhage. No calvarial fractures are visualized. There are patchy white matter hypodensities likely on a small vessel basis. There is no evidence of pathologic ventricular dilatation. There is no evidence of acute sinusitis IMPRESSION: No acute intracranial findings 07/06/20 06:30 CT cervical spine wo con Urgent COMPARISON STUDY: No previous studies for comparison. CT DOSE: 227.68 mGy.cm TECHNIQUE: CT scan of the cervical spine was performed from the skull base to the thoracic inlet. Images are reviewed in the axial, sagittal, and coronal planes. IV contrast was not administered for this examination. A dose lowering technique was utilized adhering to the principles of ALARA. FINDINGS: There is no apical pneumothorax. There is a nonspecific 5 mm right apical pulmonary nodule The prevertebral soft tissues are normal. No fractures or subluxations are visualized. There are multilevel degenerative changes IMPRESSION: 1. No evidence of acute fracture or traumatic subluxation 2. Moderate multilevel degenerative change 3. 5 mm right apical pulmonary nodule. In a low-risk patient, no further follow- up is indicated. Please refer to below summary of Fleischner criteria recommendations for follow- up of incidental CT nodules (Rafaela Smith, Guidelines for management of small pulmonary nodules detected on CT scans: A statement from the Fleischner Society, Radiology 237: [phone].) SOLID NODULES Solitary nodule size: <6 mm * low risk patients: no follow-up needed * high risk patients: optional CT at 12 months Solitary nodule size: 6-8 mm * low risk patients: follow-up at 6-12 months, then consider further follow-up at 18-24 months * high risk patients: initial follow-up CT at 6-12 months and then at 18-24 months if no change Solitary nodule size: >8 mm * either low or high risk patients - consider follow-up CT at 3 months, and/or CT-PET, and/or biopsy Multiple nodules size: <6 mm * low risk patients: no routine follow-up * high risk patients: optional CT at 12 months Multiple nodules size: 6-8 mm * low risk patients: follow-up at 3-6 months, then consider further follow-up at 18-24 months * high risk patients: follow-up at 3-6 months, then at 18-24 months if no c hange Multiple nodules size: >8 mm * low risk patients: follow-up at 3-6 months, then consider further follow-up at 18-24 months * high risk patients: follow-up at 3-6 months, then at 18-24 months if no change Note: newly detected indeterminate nodule in persons 35 years of age or older. * low risk patients: minimal or absent history of smoking and/or other known risk factors * high risk patients: history of smoking or of other known risk factors (e.g. first degree relative with lung cancer, or exposure to asbestos, radon, uranium) * if a nodule up to 8 mm is partly solid or is ground glass further follow-up is required after 24 months to exclude possible slow growing adenocarcinoma (CAT) SUBSOLID NODULES Solitary pure ground-glass nodule * nodule size <6 mm - no CT follow-up required * nodule size >=6 mm - follow-up CT at 6-12 months, then every 2 years until 5 years Solitary part-solid nodule * nodule size <6 mm - no CT follow-up required * nodule size >=6 mm - follow-up CT at 3-6 months. If unchanged, and solid component remains <6 mm, then annual follow-up for 5 years Multiple subsolid nodules * nodule size <6 mm - follow-up CT at 3-6 months, consider further follow-up at 2 and 4 years if stable * nodule size >=6 mm - follow-up CT at 3-6 months, subsequent management based on the most suspicious nodule(s) Hospital Course (1) Acute alteration in mental status: Transient Possible Clinical Dehydration -- given IV fluids -- (+) delirium noted while admitted, including paranoid thoughts- certain group of individuals coming to abduct people, RN stealing her belongings etc Psych consulted- felt to be component of delirium -- Psych does not recommend initiation of antipsychotic medication at this time -- delirium seemed to have resolved on the day of discharge -- continue to monitor closely if with persistence of tangential, paranoid thoughts, re-consult Psych service Recurrent falls, history of Parkinson's disease -- possible component of deconditioning -- Ortho VS: negative Telemetry: no arrhythmia -- evaluated by Neurology service does not recommend any changes in Sinemet dosing -- patient admits to RN about being inconsistent with Sinemet intake -- PT OT eval : recommend transition to Inpatient Rehab Cervical pain post fall -- no fractures on CT Pulmonary Nodule -- seen on CT cervical spine -- Please refer to full report in the Ordered Studies section above Further work up, management, and ff up as outpatient Otitis Externa/media -- improving continue Augmetin PO x 4 more days History of Schatzi's Ring -- s/p dilation in 2019 -- patient reports intermittent dysphagia GI consulted- recommend outpatient ff up in 1-2 weeks -- Protonix daily started continue soft, slippery diet, aspiration precautions please Disposition d/c to Rehab ff up with PCP 1 week after d/c from Rehab ff up with [facility] in 1-2 weeks ff up with [facility] as scheduled Total Time Total Time Spent Total Time Spent (In Minutes): 50 minutes Discharge Plan Discharge Items Patient Disposition: Transfer Inpatient Rehab Fac Reason For Visit: TRANSIENT AMS Discharge Diagnosis: RECURRENT FALLS EPISODE OF ALTERED MENTAL STATUS PARKINSON DISEASE Activity: Resume your previous activity Activity Comment: FALL PRECAUTIONS, ALWAYS WITH WALKER, AND ASSISTANCE Driving/Machine Use: NO DRIVING Non-emergency contact: Primary Care Provider and Neurologist Call non-emergency contact if: you have any medication questions, your symptoms worsen, your pain is not controlled, your pain is worsening, your pain is unusual for you, your pain is concerning for you and you have a fever Follow-up/Referrals: Ruba Marinelli DO [Physician] - Stanley Gaines DO [Primary Care Provider] - Ghulam Gloria, [Physician] - Diet: Heart Healthy Addtl Attending Provider Instructions: PLEASE REFER TO ACCOMPANYING HOSPITAL DISCHARGE SUMMARY. Pending Studies at Discharge: No Stand-Alone Forms: My [facility] Skilled Items Patient informed of condition?: Yes DNR: No Discharge Level of Care: Acute rehab Communicable Disease: No Discharge Prognosis: Improving Lines: None Urinary Catheter: No Medications and DC Order Prescriptions: New amoxicillin-pot clavulanate [Augmentin] 875-125 mg Tablet 1 tab PO BIDM Qty: 8 RF: 0 pantoprazole 40 mg Tablet,Delayed Release (Dr/Ec) 40 mg PO QAM Qty: 30 RF: 0 Continued simethicone [Gas-X Ultra-Strength] 180 mg Capsule 180 mg PO DIRECTED PRN (Reason: FLATUS/BLOATING) RF: 0 aspirin 81 mg Tablet,Delayed Release (Dr/Ec) 81 mg PO DAILY RF: 0 ibuprofen 600 mg Tablet 600 mg PO TID PRN (Reason: Pain) RF: 0 polyethylene glycol 3350 [Miralax] 17 gram/dose Powder 17 g PO DAILY RF: 0 carbidopa-levodopa 25-100 mg Tablet 0.5 tab PO TID RF: 0 fluticasone propionate [Flonase] 50 mcg/actuation [place],Suspension 2 spray INTRANASAL DAILY RF: 0 cholecalciferol (vitamin D3) [Vitamin D3] 25 mcg (1,000 unit) Capsule 25 mcg PO DAILY RF: 0 Centrum Silver 0.4-300-250 mg-mcg-mcg Tablet 1 tab PO DAILY RF: 0 calcium carbonate-vitamin D3 [Calcium 500 + D (D3)] 500 mg(1,250mg) -125 unit Tablet 1 tab PO TIDM RF: 0 GenTeal Tears Mild 0.1-0.3 % Drops 1 drp OPHTHALMIC (EYE) TID RF: 0 Discharge Orders: Discharge Order (Routine); Ordered 07/09/20 Ordered By: Pietro Daley Admission Data Admit Date/Time: 07/07/20 17:04 Attending Provider: Pietro Daley Admit Provider: Feng Garcia Primary Care Provider: Stanley Gaines Other Providers: Feng Garcia ; Ghulam Gloria ; [facility] ; Ruba Marinelli ; Ty Bailon ; Dorothy Gaviria ; Paramjit Johnson ; Caesar Tucker ; David Alarcon ; Kim Salcedo ; Santos Alfonso ; Camelia Mandujano ; Anali Blanco ; Marianna Marcial ; Tr Rahman I. ; Jennifer Schmitz ; Eva Tucker ; Avis Joyce
--- NOTE | 2020-07-20 08:26 | Coding Query ---
CODING QUERY To promote full compliance with coding requirements relating to patient care, provider participation is requested in all cases of director athletic uncertainty. Please assist us with the question(s) below: Coding Question(s): Patient admitted from Assisted Living with Repeat falls. History of Parkinson's Disease. Neuro Consult : "history Parkinson's Disease, possible deconditioning due to Parkinsons' ". Progress notes mention dehydration as evidenced by ketonuria. Please document if known or suspected, the etiology of the repeeat falls. Thanks for your help!! CAESAR Santana [facility] Physician's Response(s): Recurrent Falls likely Mutilfactorial: Dehydration, Deconditioning, Parkinson Disease Principal Diagnosis: "that condition established after study, to be chiefly responsible for occasioning the admission of the patient to the hospital for care." Co-Existing Principal Diagnosis: "when two or more diagnoses equally meet the criteria for principal diagnosis as determined by the circumstances of admission, diagnostic work up, and/or therapy provided, and the Alphabetic Index, Tabular List, or another coding guideline does not provide sequencing direction, any one of the diagnoses may be sequenced first." "When the physician has documented what appears to be a current diagnosis in the body of the record, but has not included the diagnosis in the final diagnostic statement, the physician should be asked whether the diagnosis should be added." (Source Coding Clinic 2 QTR90. p3-4) [place]
== END 2020-07-09 17:30 | DRG 57 ==
LOC: 2S 03:34 → ED 03:34 → 2S 08:16 → 2N 07-07 19:12